=== PATIENT | male | born 1955 | race Caucasian/White ===

== ENCOUNTER 2019-08-09 20:29 | Inpatient (IN) ==
[2019-08-09] MEDS ORDERED: Naloxone 0.4 MG/ML INJ IVP PRN (23:44)
[2019-08-10] MEDS: Gabapentin 300 MG CAPSULE PO SCH ×4 (00:17→21:05)
[2019-08-10] MEDS: tiZANidine 4 MG TABLET PO SCH ×4 (00:17→21:06)
[2019-08-10] MEDS: Baclofen 10 MG TABLET PO SCH ×5 (00:17→21:06)
[2019-08-10] MEDS: Ringers Solution, Lactated 1,000 ML IVC SCH ×4 (00:35→12:40)
[2019-08-10 00:54] LABS: Basophils # 0.1 K/mcL (0.0-0.2); Basophils % 0.5 %; Eosinophils # 0.1 K/mcL (0.0-0.6); Eosinophils % 0.5 %; Hematocrit 41.1 % (37.5-50.1); Hemoglobin 13.6 g/dL (12.9-16.9); Immature Granulocytes % 0.5 % (0-4); Lymphocytes # 1.4 K/mcL (0.6-4.6); Lymphocytes % 9.3 %; Mean Corpuscular HGB Conc 33.1 g/dL (31.6-35.5); Mean Corpuscular Hemoglobin 28.9 pg (28.0-33.3); Mean Corpuscular Volume 87.4 fL (83.0-100.0); Mean Platelet Volume 11.3 fL (9.4-12.4); Monocytes # 1.2 K/mcL (0.0-1.3); Monocytes % 8.2 %; Neutrophils # 12.1 K/mcL (1.6-8.9); Platelet Count 254 K/mcL (140-400); Red Cell Distribution Width 13.5 % (11.5-14.5); White Blood Count 14.9 K/mcL (4.3-11.1)
[2019-08-10 01:12] LABS: Alanine Aminotransferase 494 Units/L (7-52); Albumin 4.2 g/dL (3.5-5.7); Albumin/Globulin Ratio 1.7 (1.1-2.2); Alkaline Phosphatase 275 Units/L (34-104); Aspartate Amino Transferase 300 Units/L (13-39); BUN/Creatinine Ratio 18 (6-26); Bilirubin,Total 2.4 mg/dL (0.3-1.0); Blood Urea Nitrogen 22 mg/dL (8-23); Calcium 9.4 mg/dL (8.6-10.3); Carbon Dioxide 27 mEq/L (23-29); Chloride 102 mEq/L (98-107); Cholesterol 200 mg/dL (< 200); Globulin 2.5 g/dL (2.4-3.5); Glucose 161 mg/dL (70-105); HDL Cholesterol 25 mg/dL (40-59); LDL Cholesterol,Calculated 118 mg/dL (0-99); Osmolality,Calculated 291 (280-300); Phosphorous 3.1 mg/dL (2.7-4.5); Potassium 4.6 mEq/L (3.5-5.1); Sodium 137 mEq/L (136-145); Total Protein 6.7 g/dL (6.4-8.9); Triglycerides 285 mg/dL (< 150); eGFR For African Americans > 60 (> 60); eGFR For Non-African Americans 58 (> 60)
[2019-08-10 01:13] LABS: Prothrombin Time 11.4 Seconds (9.4-12.1)
[2019-08-10 01:14] LABS: Bilirubin,Urine Negative (Negative); Blood,Urine Negative (Negative); Clarity,Urine Clear (Clear); Color,Urine Yellow (Yellow); Glucose,Urine (UA) Normal (Normal); Ketones,Urine Negative (Negative); Leukocyte Esterase,Urine Negative (Negative); Nitrite,Urine Negative (Negative); Protein,Urine Negative (Neg-Trace); Specific Gravity,Urine 1.027 (1.010-1.025); Urobilinogen,Urine Normal (Normal)
[2019-08-10 01:47] LABS: Estimated Average Glucose 146 mg/dl
[2019-08-10 07:12] LABS: Bilirubin,Direct 2.4 mg/dL (0.0-0.2); Bilirubin,Indirect 0.9 mg/dL (0.0-1.0); Bilirubin,Total 3.3 mg/dL (0.3-1.0)
[2019-08-10 07:23] LABS: Hepatitis B Surface Antigen Nonreactive (Nonreactive)
[2019-08-10 07:51] LABS: Hepatitis C Virus Antibody Nonreactive (Nonreactive)
[2019-08-10 07:52] LABS: Hepatitis B Core IgM Nonreactive (Nonreactive)
[2019-08-10 07:53] LABS: Hepatitis A Antibody IgM Nonreactive (Nonreactive)
[2019-08-10] MEDS: MetroNIDAZOLE 500 MG/100 ML 500 MG/100 ML BAG IVPB SCH ×2 (08:35→16:49)
[2019-08-10] MEDS: atenoloL 25 MG TABLET PO SCH (08:41)
[2019-08-10] MEDS: TERIFLUNOMIDE 14 MG PO SCH ×2 (08:42→12:42)
[2019-08-10] MEDS ORDERED: lisinopriL 20 MG TABLET PO SCH ×2 (09:00→21:00)
[2019-08-10] MEDS ORDERED: Gadolinium Contrast Agent (WT Based) IV PRN (09:09)
[2019-08-10] MEDS: *HR* Heparin 5,000 UNIT/ML VIAL SQ SCH (18:42)
[2019-08-11] MEDS: MetroNIDAZOLE 500 MG/100 ML 500 MG/100 ML BAG IVPB SCH ×2 (01:10→10:07)
[2019-08-11] MEDS: *HR* Heparin 5,000 UNIT/ML VIAL SQ SCH ×2 (06:08→18:28)
[2019-08-11 06:26] LABS: Basophils # 0.1 K/mcL (0.0-0.2); Eosinophils # 0.2 K/mcL (0.0-0.6); Eosinophils % 3.5 %; Hematocrit 37.5 % (37.5-50.1); Immature Granulocytes % 0.6 % (0-4); Lymphocytes # 1.3 K/mcL (0.6-4.6); Lymphocytes % 20.6 %; Mean Corpuscular HGB Conc 31.7 g/dL (31.6-35.5); Mean Corpuscular Hemoglobin 28.4 pg (28.0-33.3); Mean Corpuscular Volume 89.5 fL (83.0-100.0); Mean Platelet Volume 11.5 fL (9.4-12.4); Monocytes # 0.5 K/mcL (0.0-1.3); Monocytes % 8.5 %; Neutrophils # 4.1 K/mcL (1.6-8.9); Platelet Count 163 K/mcL (140-400); Red Blood Count 4.19 M/mcL (4.19-5.50); Red Cell Distribution Width 13.5 % (11.5-14.5); Segmented Neutrophils % 65.8 %
[2019-08-11 06:28] LABS: Hemoglobin 11.9 g/dL (12.9-16.9); White Blood Count 6.2 K/mcL (4.3-11.1)
[2019-08-11 06:54] LABS: Alanine Aminotransferase 458 Units/L (7-52); Albumin 3.9 g/dL (3.5-5.7); Albumin/Globulin Ratio 1.9 (1.1-2.2); Alkaline Phosphatase 260 Units/L (34-104); Aspartate Amino Transferase 196 Units/L (13-39); BUN/Creatinine Ratio 15 (6-26); Bilirubin,Total 1.6 mg/dL (0.3-1.0); Blood Urea Nitrogen 17 mg/dL (8-23); Calcium 9.7 mg/dL (8.6-10.3); Carbon Dioxide 29 mEq/L (23-29); Chloride 104 mEq/L (98-107); Globulin 2.1 g/dL (2.4-3.5); Glucose 110 mg/dL (70-105); Lipase 68 Units/L (11-82); Osmolality,Calculated 292 (280-300); Potassium 3.9 mEq/L (3.5-5.1); Sodium 140 mEq/L (136-145); eGFR For African Americans > 60 (> 60); eGFR For Non-African Americans > 60 (> 60)
[2019-08-11] MEDS ORDERED: Ringers Solution, Lactated 1,000 ML IV SCH ×2 (10:00→16:40)
[2019-08-11] MEDS: Baclofen 10 MG TABLET PO SCH ×3 (10:08→22:21)
[2019-08-11] MEDS: tiZANidine 4 MG TABLET PO SCH ×2 (10:08→22:22)
[2019-08-11] MEDS: Gabapentin 300 MG CAPSULE PO SCH ×2 (10:08→22:21)
[2019-08-11] MEDS: TERIFLUNOMIDE 14 MG PO SCH (10:10)
[2019-08-11] MEDS: atenoloL 25 MG TABLET PO SCH (10:13)
[2019-08-11] MEDS ORDERED: Ondansetron 4 MG/2 ML VIAL ONE ×2 (12:29→15:09)
[2019-08-11] MEDS ORDERED: Lidocaine -MPF 2% 2 ML VIAL ONE ×2 (12:29→15:10)
[2019-08-11] MEDS ORDERED: Dexamethasone 4 MG/ML VIAL ONE (12:29)
[2019-08-11] MEDS ORDERED: *HR* Rocuronium Bromide 50 MG/5 ML VIAL ONE ×2 (12:29→15:10)
[2019-08-11] MEDS ORDERED: *HR* Succinylcholine 200 MG/10 ML VIAL IVP ONE (12:29)
[2019-08-11] MEDS ORDERED: *HR* FentaNYL (PF) 100 MCG/2 ML VIAL ONE ×2 (12:37→12:59)
[2019-08-11] MEDS ORDERED: *HR* Propofol 200 MG/20 ML VIAL IVP ONE ×2 (12:37→12:59)
[2019-08-11] MEDS ORDERED: *HR* Midazolam HCl 2 MG/2 ML VIAL ONE (12:59)
[2019-08-11] MEDS ORDERED: Lidocaine HCL 4 ML Topical Solution (Laryng-O-Jet Kit Sterile Pak) TP ONE (13:02)
[2019-08-11] MEDS ORDERED: Acetaminophen IV 1,000 MG/100 ML INFUS..BTL ONE (13:39)
[2019-08-11] MEDS ORDERED: EPHEDrine 50 MG/ML VIAL ONE (14:08)
[2019-08-11] MEDS ORDERED: *HR* PHENYLEPHRINE 1,000 MCG/10 ML SYRINGE IVP ONE (14:15)
[2019-08-11] MEDS ORDERED: Naloxone 0.4 MG/ML INJ IVP PRN (16:40)
[2019-08-11] MEDS ORDERED: MetroNIDAZOLE 500 MG/100 ML 500 MG/100 ML BAG IVPB SCH (18:00)
[2019-08-11] MEDS ORDERED: lisinopriL 20 MG TABLET PO SCH (21:00)
[2019-08-12] MEDS: MetroNIDAZOLE 500 MG/100 ML 500 MG/100 ML BAG IVPB SCH ×2 (04:30→12:21)
[2019-08-12] MEDS: *HR* Heparin 5,000 UNIT/ML VIAL SQ SCH (06:19)
[2019-08-12 07:28] LABS: Basophils % 0.2 %; Hemoglobin 12.2 g/dL (12.9-16.9); Immature Granulocytes % 0.5 % (0-4); Lymphocytes # 0.8 K/mcL (0.6-4.6); Lymphocytes % 7.4 %; Mean Corpuscular HGB Conc 32.1 g/dL (31.6-35.5); Mean Corpuscular Hemoglobin 28.1 pg (28.0-33.3); Mean Corpuscular Volume 87.6 fL (83.0-100.0); Mean Platelet Volume 11.3 fL (9.4-12.4); Monocytes # 0.7 K/mcL (0.0-1.3); Monocytes % 6.8 %; Neutrophils # 8.6 K/mcL (1.6-8.9); Platelet Count 203 K/mcL (140-400); Red Blood Count 4.34 M/mcL (4.19-5.50); Red Cell Distribution Width 13.3 % (11.5-14.5); Segmented Neutrophils % 85.1 %
[2019-08-12 07:43] LABS: White Blood Count 10.1 K/mcL (4.3-11.1)
[2019-08-12 07:44] LABS: BUN/Creatinine Ratio 15 (6-26); Blood Urea Nitrogen 17 mg/dL (8-23); Calcium 9.7 mg/dL (8.6-10.3); Carbon Dioxide 29 mEq/L (23-29); Chloride 100 mEq/L (98-107); Glucose 145 mg/dL (70-105); Osmolality,Calculated 290 (280-300); Potassium 4.3 mEq/L (3.5-5.1); Sodium 138 mEq/L (136-145); eGFR For African Americans > 60 (> 60); eGFR For Non-African Americans > 60 (> 60)
[2019-08-12] MEDS ORDERED: Patient Taking Own Medication 1 EACH PO SCH (09:00)
[2019-08-12] MEDS ORDERED: atenoloL 25 MG TABLET PO SCH (09:00)
[2019-08-12 09:12] LABS: Alanine Aminotransferase 342 Units/L (7-52); Albumin 4.1 g/dL (3.5-5.7); Albumin/Globulin Ratio 1.9 (1.1-2.2); Alkaline Phosphatase 232 Units/L (34-104); Aspartate Amino Transferase 110 Units/L (13-39); Bilirubin,Direct 0.4 mg/dL (0.0-0.2); Bilirubin,Indirect 0.6 mg/dL (0.0-1.0); Globulin 2.2 g/dL (2.4-3.5); Total Protein 6.3 g/dL (6.4-8.9)
[2019-08-12] MEDS: Gabapentin 300 MG CAPSULE PO SCH (09:23)
[2019-08-12] MEDS: Baclofen 10 MG TABLET PO SCH ×2 (09:23→12:21)
[2019-08-12] MEDS: tiZANidine 4 MG TABLET PO SCH (09:23)
[2019-08-12] MEDS ORDERED: Ondansetron ODT 4 MG TAB.RAPDIS SL PRN (09:59)
[2019-08-12 10:37] VITALS: BP 119/65
== END 2019-08-12 15:00 | disposition home or self-care (01) ==
LOC: 3ANU → SUATTDRO 22:04
PROVIDERS: ADMIT Internal Medicine; ATTEND Internal Medicine

== ENCOUNTER 2020-03-18 21:15 | Inpatient (IN) ==
[2020-03-18] MEDS ORDERED: Acetaminophen 325 MG TABLET PO PRN (23:25)
[2020-03-18] MEDS ORDERED: Naloxone 0.4 MG/ML INJ IVP PRN (23:25)
[2020-03-18] MEDS ORDERED: Ondansetron 4 MG/2 ML VIAL IVP PRN (23:25)
[2020-03-18] MEDS ORDERED: 0.9 % Sodium Chloride 1,000 ML IVC SCH (23:30)
[2020-03-19 00:46] LABS: Basophils # 0.2 K/mcL (0.0-0.2); Basophils % 0.9 %; Eosinophils # 0.2 K/mcL (0.0-0.6); Eosinophils % 0.9 %; Hemoglobin 9.7 g/dL (12.9-16.9); Lymphocytes % 12.7 %; Mean Corpuscular HGB Conc 32.3 g/dL (31.6-35.5); Mean Corpuscular Hemoglobin 29.2 pg (28.0-33.3); Mean Corpuscular Volume 90.4 fL (83.0-100.0); Mean Platelet Volume 10.4 fL (9.4-12.4); Monocytes # 1.7 K/mcL (0.0-1.3); Monocytes % 9.9 %; Nucleated Red Blood Cells 0.4 /100 WBC (0); Platelet Count 242 K/mcL (140-400); Red Blood Count 3.32 M/mcL (4.19-5.50); Red Cell Distribution Width 16.3 % (11.5-14.5); Segmented Neutrophils % 66.6 %; White Blood Count 16.9 K/mcL (4.3-11.1)
[2020-03-19 00:48] LABS: Lymphocytes # 2.2 K/mcL (0.6-4.6); Neutrophils # 11.3 K/mcL (1.6-8.9)
[2020-03-19] MEDS ORDERED: 0.9 % Sodium Chloride 1,000 ML IVC SCH (00:48)
[2020-03-19 00:58] LABS: Calcium 8.8 mg/dL (8.6-10.3); Magnesium 2.1 mg/dL (1.6-2.6); Phosphorous 3.8 mg/dL (2.7-4.5); Potassium 4.3 mEq/L (3.5-5.1)
[2020-03-19 00:59] LABS: INR 1.3; Prothrombin Time 15.3 Seconds (9.4-12.1)
[2020-03-19 02:21] LABS: Platelet Estimate Normal (Normal)
[2020-03-19] MEDS: 0.9 % Sodium Chloride 1,000 ML IVC SCH ×2 (03:15→13:25)
[2020-03-19] MEDS ORDERED: Gabapentin 300 MG CAPSULE PO SCH (09:00)
[2020-03-19] MEDS ORDERED: tiZANidine 4 MG TABLET PO SCH (09:00)
[2020-03-19] MEDS ORDERED: TERIFLUNOMIDE 14 MG PO SCH (09:00)
[2020-03-19] MEDS ORDERED: Ketorolac 30 MG/ML VIAL IVP ONE (09:19)
[2020-03-19] MEDS: Baclofen 10 MG TABLET PO SCH ×3 (09:34→22:13)
[2020-03-19] MEDS ORDERED: Acetaminophen/Aspirin/Caffeine TABLET PO PRN ×2 (11:29→17:19)
[2020-03-19] MEDS ORDERED: *HR* Propofol 200 MG/20 ML VIAL IVP ONE (14:41)
[2020-03-19] MEDS ORDERED: Ondansetron 4 MG/2 ML VIAL ONE (14:42)
[2020-03-19] MEDS ORDERED: Lidocaine -MPF 2% 2 ML VIAL ONE (14:42)
[2020-03-19] MEDS ORDERED: Dexamethasone 4 MG/ML VIAL ONE (14:42)
[2020-03-19 15:36] LABS: Bacteria,Urine Few per hpf (None-Few); Bilirubin,Urine Negative (Negative); Blood,Urine Large (Negative); Clarity,Urine Turbid (Clear); Color,Urine Yellow (Yellow); Glucose,Urine (UA) Normal (Normal); Ketones,Urine Negative (Negative); Leukocyte Esterase,Urine Large (Negative); Mucus,Urine Few per lpf (None-Few); Nitrite,Urine Negative (Negative); Protein,Urine 30 mg/dL (Neg-Trace); RBC,Urine 50-100 per hpf (0-3); Specific Gravity,Urine 1.014 (1.010-1.025); Squamous Epithelial Cell,Urine Few per hpf (None-Few); Urobilinogen,Urine Normal (Normal); WBC,Urine TNTC per hpf (0-3)
[2020-03-19] MEDS ORDERED: *HR* FentaNYL (PF) 100 MCG/2 ML VIAL ONE (15:42)
[2020-03-19] MEDS ORDERED: EPHEDrine 50 MG/ML VIAL ONE (16:01)
[2020-03-19] MEDS ORDERED: Acetaminophen 325 MG TABLET PO PRN (17:19)
[2020-03-19] MEDS ORDERED: Naloxone 0.4 MG/ML INJ IVP PRN (17:19)
[2020-03-19] MEDS ORDERED: Ondansetron 4 MG/2 ML VIAL IVP PRN (17:19)
[2020-03-19] MEDS ORDERED: *HR* HYDROcodone/Acet 5/325 mg TABLET PO PRN (17:19)
[2020-03-19] MEDS: Gabapentin 300 MG CAPSULE PO SCH (22:13)
[2020-03-20] MEDS: 0.9 % Sodium Chloride 1,000 ML IVC SCH ×2 (01:06→10:05)
[2020-03-20 08:15] LABS: Nucleated Red Blood Cells 0.1 /100 WBC (0)
[2020-03-20 08:33] LABS: BUN/Creatinine Ratio 25 (6-26); Blood Urea Nitrogen 26 mg/dL (8-23); Calcium 8.8 mg/dL (8.6-10.3); Carbon Dioxide 22 mEq/L (23-29); Chloride 106 mEq/L (98-107); Glucose 123 mg/dL (70-105); Osmolality,Calculated 288 (280-300); Potassium 4.3 mEq/L (3.5-5.1); Sodium 136 mEq/L (136-145); eGFR For African Americans > 60 (> 60); eGFR For Non-African Americans > 60 (> 60)
[2020-03-20 08:45] LABS: Hematocrit 31.4 % (37.5-50.1); Hemoglobin 9.8 g/dL (12.9-16.9); Mean Corpuscular HGB Conc 31.2 g/dL (31.6-35.5); Mean Corpuscular Hemoglobin 28.7 pg (28.0-33.3); Mean Corpuscular Volume 92.1 fL (83.0-100.0); Mean Platelet Volume 10.4 fL (9.4-12.4); Platelet Count 247 K/mcL (140-400); Red Blood Count 3.41 M/mcL (4.19-5.50); White Blood Count 15.8 K/mcL (4.3-11.1)
[2020-03-20] MEDS ORDERED: amLODIPine 5 MG TABLET PO SCH (09:00)
[2020-03-20] MEDS ORDERED: atenoloL 25 MG TABLET PO SCH (09:00)
[2020-03-20] MEDS ORDERED: lisinopriL 20 MG TABLET PO SCH (09:00)
[2020-03-20] MEDS ORDERED: Cholecalciferol (D-3) 1,000 UNIT (25MCG) TABLET PO SCH (09:00)
[2020-03-20] MEDS ORDERED: Patient Taking Own Medication 1 EACH PO SCH (09:00)
[2020-03-20] MEDS: Gabapentin 300 MG CAPSULE PO SCH (10:12)
[2020-03-20] MEDS: Baclofen 10 MG TABLET PO SCH ×2 (10:12→13:20)
[2020-03-20 10:16] LABS: Eosinophils # 0.3 K/mcL (0.0-0.6); Lymphocytes # 4.1 K/mcL (0.6-4.6); Monocytes # 0.6 K/mcL (0.0-1.3); Neutrophils # 10.1 K/mcL (1.6-8.9); Platelet Estimate Normal (Normal)
[2020-03-20 10:17] LABS: Anisocytosis 1+ (Not Present)
[2020-03-20 10:55] VITALS: BP 147/69
== END 2020-03-20 14:59 | disposition home or self-care (01) | DRG 854 ==
LOC: 3ANU → SUATTDRO 23:09
PROVIDERS: ADMIT Student in an Organized Health Care Education/Training Program; ATTEND Internal Medicine

== ENCOUNTER 2021-11-09 22:23 | Inpatient (IN) ==
[2021-11-10] MEDS ORDERED: Naloxone 0.4 MG/ML INJ IVP PRN (01:45)
[2021-11-10] MEDS ORDERED: 0.9 % Sodium Chloride 1,000 ML IVC SCH (01:45)
[2021-11-10] MEDS ORDERED: Acetaminophen 325 MG TABLET PO PRN (01:45)
[2021-11-10 05:55] LABS: Basophils # 0.1 K/mcL (0.0-0.2); Basophils % 0.7 %; Eosinophils # 0.3 K/mcL (0.0-0.6); Eosinophils % 2.3 %; Hematocrit 39.3 % (37.5-50.1); Hemoglobin 12.7 g/dL (12.9-16.9); Immature Granulocytes % 1.2 % (0-4); Lymphocytes # 2.4 K/mcL (0.6-4.6); Lymphocytes % 16.3 %; Mean Corpuscular HGB Conc 32.3 g/dL (31.6-35.5); Mean Corpuscular Hemoglobin 27.4 pg (28.0-33.3); Mean Corpuscular Volume 84.9 fL (83.0-100.0); Mean Platelet Volume 10.7 fL (9.4-12.4); Monocytes # 1.1 K/mcL (0.0-1.3); Monocytes % 7.4 %; Neutrophils # 10.5 K/mcL (1.6-8.9); Platelet Count 260 K/mcL (140-400); Red Blood Count 4.63 M/mcL (4.19-5.50); Segmented Neutrophils % 72.1 %; White Blood Count 14.5 K/mcL (4.3-11.1)
[2021-11-10 06:05] LABS: INR 1.1
[2021-11-10 06:08] LABS: Activated Partial Thrombo Time 25.7 Seconds (26.0-36.0)
[2021-11-10 06:10] LABS: Alanine Aminotransferase 60 Units/L (7-52); Albumin 4.2 g/dL (3.5-5.7); Albumin/Globulin Ratio 1.8 (1.1-2.2); Alkaline Phosphatase 85 Units/L (34-104); Aspartate Amino Transferase 33 Units/L (13-39); BUN/Creatinine Ratio 15 (6-26); Bilirubin,Total 0.4 mg/dL (0.3-1.0); Blood Urea Nitrogen 19 mg/dL (8-23); Calcium 9.5 mg/dL (8.6-10.3); Carbon Dioxide 28 mEq/L (23-29); Chloride 103 mEq/L (98-107); Globulin 2.4 g/dL (2.4-3.5); Glucose 116 mg/dL (70-105); Osmolality,Calculated 291 (280-300); Potassium 4.3 mEq/L (3.5-5.1); Sodium 139 mEq/L (136-145); Total Protein 6.6 g/dL (6.4-8.9); eGFR For African Americans > 60 (> 60); eGFR For Non-African Americans 55 (> 60)
[2021-11-10] MEDS: cefTRIAXone 1,000 MG in 0.9 % Sodium Chloride 10 ML IVP SCH (08:37)
[2021-11-10 11:23] LABS: Bilirubin,Urine Negative (Negative); Blood,Urine Small (Negative); Clarity,Urine Turbid (Clear); Color,Urine Light-Yellow (Yellow); Glucose,Urine (UA) Normal (Normal); Ketones,Urine Negative (Negative); Leukocyte Esterase,Urine Negative (Negative); Mucus,Urine Few per lpf (None-Few); Nitrite,Urine Negative (Negative); Protein,Urine 50 mg/dL (Neg-Trace); RBC,Urine 15-30 per hpf (0-3); Specific Gravity,Urine 1.019 (1.010-1.025); Urobilinogen,Urine Normal (Normal); WBC,Urine 0-3 per hpf (0-3)
[2021-11-10] MEDS: Ondansetron 4 MG/2 ML VIAL IVP PRN (14:57)
[2021-11-10] MEDS ORDERED: *HR* LORazepam 2 MG/ML VIAL IVP ONE ×2 (20:36→22:57)
[2021-11-10] MEDS: Insulin LISPRO 300 UNITS/3 ML VIAL SUBQ SCH (20:53)
[2021-11-10] MEDS: Vancomycin 1,250 MG/262.5 ML IV.SOLN IVPB SCH (20:53)
[2021-11-11 06:01] LABS: Basophils # 0.1 K/mcL (0.0-0.2); Basophils % 0.8 %; Eosinophils # 0.2 K/mcL (0.0-0.6); Eosinophils % 1.7 %; Hematocrit 36.6 % (37.5-50.1); Hemoglobin 12.2 g/dL (12.9-16.9); Immature Granulocytes % 1.2 % (0-4); Lymphocytes # 2.1 K/mcL (0.6-4.6); Mean Corpuscular HGB Conc 33.3 g/dL (31.6-35.5); Mean Corpuscular Hemoglobin 28.2 pg (28.0-33.3); Mean Corpuscular Volume 84.7 fL (83.0-100.0); Mean Platelet Volume 10.6 fL (9.4-12.4); Monocytes # 0.9 K/mcL (0.0-1.3); Monocytes % 7.5 %; Neutrophils # 8.7 K/mcL (1.6-8.9); Platelet Count 233 K/mcL (140-400); Red Blood Count 4.32 M/mcL (4.19-5.50); Red Cell Distribution Width 14.6 % (11.5-14.5); Segmented Neutrophils % 71.8 %; White Blood Count 12.1 K/mcL (4.3-11.1)
[2021-11-11 06:16] LABS: Alanine Aminotransferase 53 Units/L (7-52); Albumin/Globulin Ratio 1.8 (1.1-2.2); Alkaline Phosphatase 75 Units/L (34-104); Aspartate Amino Transferase 32 Units/L (13-39); BUN/Creatinine Ratio 12 (6-26); Bilirubin,Total 0.6 mg/dL (0.3-1.0); Blood Urea Nitrogen 14 mg/dL (8-23); Calcium 9.5 mg/dL (8.6-10.3); Carbon Dioxide 28 mEq/L (23-29); Chloride 100 mEq/L (98-107); Globulin 2.2 g/dL (2.4-3.5); Glucose 108 mg/dL (70-105); Osmolality,Calculated 287 (280-300); Potassium 3.9 mEq/L (3.5-5.1); Sodium 138 mEq/L (136-145); Total Protein 6.2 g/dL (6.4-8.9); eGFR For African Americans > 60 (> 60); eGFR For Non-African Americans > 60 (> 60)
[2021-11-11] MEDS: Ondansetron 4 MG/2 ML VIAL IVP PRN (07:35)
[2021-11-11] MEDS: Insulin LISPRO 300 UNITS/3 ML VIAL SUBQ SCH ×4 (07:35→22:03)
[2021-11-11] MEDS: cefTRIAXone 1,000 MG in 0.9 % Sodium Chloride 10 ML IVP SCH (07:35)
[2021-11-11] MEDS: Vancomycin 1,250 MG/262.5 ML IV.SOLN IVPB SCH ×2 (07:35→22:01)
[2021-11-11] MEDS ORDERED: Prochlorperazine 10 MG/2 ML VIAL IVP PRN (09:16)
[2021-11-11] MEDS: amLODIPine 5 MG TABLET PO SCH (09:27)
[2021-11-11] MEDS: atenoloL 25 MG TABLET PO SCH (09:27)
[2021-11-11] MEDS: lisinopriL 10 MG TABLET PO SCH (09:27)
[2021-11-11] MEDS: Zinc Sulfate 220 MG CAPSULE PO SCH (09:27)
[2021-11-11] MEDS: Ascorbic Acid 500 MG TABLET PO SCH (09:27)
[2021-11-11] MEDS: Multivit/Ca/Min/Fe/FA 1 TAB TABLET PO SCH (09:27)
[2021-11-11] MEDS: Cholecalciferol (D-3) 1,000 UNIT (25MCG) TABLET PO SCH (09:27)
[2021-11-11] MEDS: Gabapentin 300 MG CAPSULE PO SCH ×3 (09:27→22:02)
[2021-11-11] MEDS: Aspirin Enteric Coated 81 MG Tablet PO SCH (09:27)
[2021-11-11] MEDS: Baclofen 10 MG TABLET PO SCH ×4 (09:28→22:02)
[2021-11-11] MEDS: tiZANidine 4 MG TABLET PO SCH ×3 (09:28→22:02)
[2021-11-11] MEDS: NATALIZUMAB SUBQ SCH (09:28)
[2021-11-12 06:16] LABS: Basophils # 0.1 K/mcL (0.0-0.2); Basophils % 0.5 %; Eosinophils # 0.2 K/mcL (0.0-0.6); Eosinophils % 1.5 %; Hematocrit 36.4 % (37.5-50.1); Hemoglobin 11.9 g/dL (12.9-16.9); Immature Granulocytes % 1.3 % (0-4); Lymphocytes # 1.7 K/mcL (0.6-4.6); Mean Corpuscular HGB Conc 32.7 g/dL (31.6-35.5); Mean Corpuscular Hemoglobin 27.6 pg (28.0-33.3); Mean Corpuscular Volume 84.5 fL (83.0-100.0); Mean Platelet Volume 10.9 fL (9.4-12.4); Monocytes # 0.8 K/mcL (0.0-1.3); Monocytes % 7.4 %; Neutrophils # 8.3 K/mcL (1.6-8.9); Platelet Count 237 K/mcL (140-400); Red Blood Count 4.31 M/mcL (4.19-5.50); Red Cell Distribution Width 14.6 % (11.5-14.5); Segmented Neutrophils % 74.3 %; White Blood Count 11.2 K/mcL (4.3-11.1)
[2021-11-12 06:43] LABS: Alanine Aminotransferase 52 Units/L (7-52); Albumin 4.2 g/dL (3.5-5.7); Albumin/Globulin Ratio 1.8 (1.1-2.2); Alkaline Phosphatase 79 Units/L (34-104); Aspartate Amino Transferase 31 Units/L (13-39); BUN/Creatinine Ratio 14 (6-26); Bilirubin,Total 0.6 mg/dL (0.3-1.0); Blood Urea Nitrogen 16 mg/dL (8-23); Calcium 9.7 mg/dL (8.6-10.3); Carbon Dioxide 28 mEq/L (23-29); Chloride 100 mEq/L (98-107); Globulin 2.4 g/dL (2.4-3.5); Glucose 105 mg/dL (70-105); Osmolality,Calculated 288 (280-300); Potassium 3.4 mEq/L (3.5-5.1); Sodium 138 mEq/L (136-145); Total Protein 6.6 g/dL (6.4-8.9); eGFR For African Americans > 60 (> 60); eGFR For Non-African Americans > 60 (> 60)
[2021-11-12] MEDS: Insulin LISPRO 300 UNITS/3 ML VIAL SUBQ SCH ×2 (09:03→12:41)
[2021-11-12] MEDS: NATALIZUMAB SUBQ SCH (09:04)
[2021-11-12] MEDS: Ascorbic Acid 500 MG TABLET PO SCH (09:05)
[2021-11-12] MEDS: Cholecalciferol (D-3) 1,000 UNIT (25MCG) TABLET PO SCH (09:05)
[2021-11-12] MEDS: Gabapentin 300 MG CAPSULE PO SCH ×2 (09:05→15:14)
[2021-11-12] MEDS: amLODIPine 5 MG TABLET PO SCH (09:05)
[2021-11-12] MEDS: Multivit/Ca/Min/Fe/FA 1 TAB TABLET PO SCH (09:05)
[2021-11-12] MEDS: Aspirin Enteric Coated 81 MG Tablet PO SCH (09:05)
[2021-11-12] MEDS: Zinc Sulfate 220 MG CAPSULE PO SCH (09:05)
[2021-11-12] MEDS: atenoloL 25 MG TABLET PO SCH (09:05)
[2021-11-12] MEDS: lisinopriL 10 MG TABLET PO SCH (09:05)
[2021-11-12] MEDS: cefTRIAXone 1,000 MG in 0.9 % Sodium Chloride 10 ML IVP SCH (09:06)
[2021-11-12] MEDS: Baclofen 10 MG TABLET PO SCH ×3 (09:06→16:49)
[2021-11-12] MEDS: tiZANidine 4 MG TABLET PO SCH ×2 (09:09→15:14)
[2021-11-12] MEDS: Vancomycin 1,250 MG/262.5 ML IV.SOLN IVPB SCH (09:18)
[2021-11-12 11:31] VITALS: BP 102/59; PULSE 60; TEMP 97.5; O2SAT 91
== END 2021-11-12 17:20 | disposition home or self-care (01) | DRG 872 ==
LOC: 2ANU
PROVIDERS: ADMIT Internal Medicine; ATTEND Internal Medicine